=== PATIENT | male | born 1970 | race Caucasian/White ===

== ENCOUNTER 2016-08-16 23:40 | Emergency (ER) | payer OTHER | END 2016-08-17 01:20 | disposition home or self-care (01) | LOC: ER 23:40 | DX: M51.16 Intervertebral disc disorders with radiculopathy, lumbar region (principal); G89.29 Other chronic pain; M54.5 Low back pain; Z79.899 Other long term (current) drug therapy | CPT/HCPCS: 72128; 72131; 99283-25 ==